=== PATIENT | female | born 1955 | race Caucasian/White ===

== ENCOUNTER 2023-09-19 13:52 | Outpatient (CLI) | payer MEDICARE, BC, SELFPAY | END 2023-09-19 13:53 | disposition home or self-care (01) | PROVIDERS: PCP Nurse Practitioner Family; Visit Provider Nurse Practitioner Family | DX: Z01.818 Encounter for other preprocedural examination (principal) | CPT/HCPCS: 80048; 85025 ==

== ENCOUNTER 2024-03-23 14:39 | Outpatient (CLI) | payer MEDICARE, BC, SELFPAY ==
--- OUTSIDE RECORDS SUMMARY | 2024-03-23 14:43 | XMS_ITS | Encounter Summary ---
Author Organization [facility] Address [address] [place] [address] Care Team Providers Care Garment Parts Cutter Machine Name Role Phone Logan Wolfe MD Primary Care Provider [phone] Reason for Visit * Reason Onset Date Comments Registry Management 01/01/2024 Encounter Details Date Type Department Care Team (Late st Contact Info) Description 01/01/2024 Telephone [place] [address] [place] [id number] Logan Wolfe MD [address] [facility] 20 [place] [address] Registry Management Social History Tobacco Use Types Packs/Day Years Used Date Smoking Tobacco: Former Cigarettes Q uit: 1987 Smokeless Tobacco: Never Alcohol Use Standard Drinks/Week Comments No 0 (1 standard drink = 0.6 oz pur e alcohol) Social Connection and Isolation Panel [NHANES] A nswer Date Recorded Frequency of Communication with Friends and Fami ly Not on file 08/15/2023 Frequency of Social Gatherings with Friends and Family Not on file 08/15/2023 Attends Judaism Services Not on file 08/14 Active Member of Clubs or Organizations Not on f ile 08/15/2023 Attends Club or Organization Meetings Not on ar e 08/15/2023 Are you , , di vorced, , never , or living with a partner? 08/15/2023 AUDIT-C Answer Date Recorded Q1: How often do you have a drink containing alc ohol? Never 11/25/2019 Average Number of Drinks Not on file Frequency of Binge Drinking Not on file 11/13 PHQ-2 Answer Date Recorded PHQ-9 Total Score 0 08/15/2023 Comments No Sex and Gender Information Value Date Recorded Sex Assigned at Not on file Legal Sex Female 8:05 PM CDT Gender Identity Not on file Sexual Orientation Not on file Occupation Industry Job Start Date Job End Date Retired Not on file Not on file Not on file documented as of this encounter Miscellaneous Notes * Telephone Encounter - Patricia Rizzo - 01/01/2024 3:39 PM CDT LMTCB to schedule BP check with nursing * Telephone Encounter - Cayla Figueredo, RN - 01/01/2024 9:32 AM CDT Registry Management Fiona is active on the following registry/registries: Hypertension Registry Measure Value Optimal Care BP reading -yearly BP Readings from Last 1 Encounters: 08/15/23 (!) 166/81 Yes BP controlled Age 18-59 <140/90 Age 60-85 <150/90 No Actions needed to achieve optimal care for hypertension: Schedule appointment for blood pressure check Actions taken: PSR to contact patient to schedule an appointment for: nurse visit/blood pressure check documented in this encounter Plan of Treatment Not on file documented as of this encounter Visit Diagnoses Not on filedocumented in this encounter Care Teams Garment Parts Cutter Machine Relationship Specialty Start Date End Date Logan Wolfe MD [address] [place] [address] PCP - General 01/31/23 documented as of this encounter
--- OUTSIDE RECORDS SUMMARY | 2024-03-23 14:43 | XMS_ITS | Clinical Summary ---
Author Organization [facility] Address [address] [place] [address] Care Team Providers Care Wildlife Ecologist Name Role Phone Elsewhere, Pcp Primary Care Provider Unavailabl e Source Comments Patient records contain information from all sites at [facility]. For routine questions regarding patient records, call [phone] during business hours, M-F 8:00 AM - 5:00 PM Central Time. Record requests for emergency care only can be directed to [phone] at any time.[facility] Allergies Active Allergy Reactions Criticality Noted Date Comments Bacitracin Other (see comments) 06/22/2020 Diclofenac Other (see comments),Nausea And Vomiting 06/22/2020 Ezetimibe Headache 03/14/2023 Lovastatin GI intolerance 04/14/2014 Acid reflux and stomach pain Mupirocin Other (see comments) 08/20/2012 Bactroban - facial swelling Nsaids (Non-Steroidal Anti-Inflammatory Drug) GI intolerance 04/03/2018 Oxaprozin Other (see comments),Nausea And Vomiting 06/22/2020 Penicillins Hives (Reselect Reaction),Rash Medium 10/09/2019 Hives, swelling right ear Sulfa (Sulfonamide Antibiotics) Rash 08/18/2012 Medications * This document contains information received from the source organization and may not represent a complete record from that organization. MULTIVITAMIN ORAL Take 1 tablet by mouth daily. 017 Active sodium chloride-sodiu m bicarbonate (NEILMED SINUS RINSE) nasal rinse 2 (two) times a day. NeilMed Sinus Rinse Packets nasal powder for reconstitution 017 Active cholecalcifero l, vitamin D3, 25 mcg (1,000 Unit) tablet Take 1,000 Units by mouth daily. Active artificial tears,hypromel lose, (ISOPTO TEARS) 0.3 % ophthalmic solution 1 drop as needed. Ac tive zinc citrate-phytas e 25-500 mg capsule Take 1 capsule by mouth daily. Active loratadine 10 mg capsule Take 1 capsule by mouth as needed. 022 Active simvastatin (ZOCOR) 20 mg tablet Take 1 tablet (20 mg total) by mouth every evening. 90 tablet 1 3 10:33 AM CLIENT DELIVERY SPECIALIST 023 Active triamcinolone acetonide (NASACORT ALLERGY NASAL) 024 Active HYDROcodone-ac etaminophen ([place]) 5-325 mg per tabletIndicati ons:Prolonged Acute Pain/Traumatic Injury Take 1-2 tablets by mouth every 6 (six) hours as needed for pain Indication: Prolonged Acute Pain/Traumatic Injury. 18 tablet 024 Active ketoconazole (Nizoral) 2 % cream Apply thin layer to affected nails and nail beds once daily ongoing. 60 g 6 024 Active azithromycin (ZITHROMAX) 500 mg tablet Take 500 mg by mouth daily. 018 2023 Discontinued doxycycline hyclate (Vibramycin) 100 mg capsule Take 1 capsule (100 mg total) by mouth 2 (two) times a day for 14 days. 28 capsule 4 11:54 AM CLIENT DELIVERY SPECIALIST 024 2023 azithromycin (Zithromax) 250 mg tablet Take 2 tablets (500 mg total) by mouth daily for 1 day, THEN 1 tablet (250 mg total) daily for 4 days. 6 tablet 4 4:17 PM CLIENT DELIVERY SPECIALIST 024 2023 azithromycin (Zithromax) 250 mg tablet Take 2 tablets (500 mg total) by mouth daily for 1 day, THEN 1 tablet (250 mg total) daily for 4 days. 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 Screening Mammogram Breast Cancer Discharge Disposition: Home or Self Care from Last 3 Months Immunizations Name Administration Dates Next Due Influenza, Unspecified 01/05/2011,02/03/2010 PPSV23 02/03/2010 RZV (SHINGRIX) 01/24/2018 Tdap 12/04/2016,02/21/2009 Zoster, Unspecified 01/24/2018 Family History Medical History Relation Name Comments Hernia Brother 1 Hyperlipidemia Brother 1 Hypertension Brother 1 Vision loss Brother 1 Vision loss due to eye stroke Diabetes Brother 2 omid Hyperlipidemia Brother 2 omid Hypertension Brother 2 omid Sleep apnea Brother 2 omid RA - Rheumatoid arthritis Cousin Kidney disease Father delmi Colon cancer Grandfather Cataracts Maternal Grandfather Orval Colon cancer Maternal Grandfather Orval Glaucoma Maternal Grandfather Orval Cataracts Maternal Grandmother Cataracts Mother yoni Coronary artery disease Mother yoni October 2018 Hyperlipidemia Mother yoni Hypertension Mother yoni Macular degeneration Mother yoni Sleep apnea Mother's Brother jonathan Amblyopia Neg Hx Blindness Neg Hx Retinal degeneration Neg Hx Retinal detachment Neg Hx Strabismus Neg Hx Stroke Neg Hx Thyroid disease Neg Hx Relation Name Status Comments Brother 1 Brother 2 omid Cousin Father delmi Grandfather Maternal Grandfather Orval Maternal Grandmother Mother yoni Mother's Brother jonathan Social History Tobacco Use Types Packs/Day Years Used Date Smoking Tobacco: Former Cigarettes Q uit: 04/15/1986 Smokeless Tobacco: Never Tobacco Cessation:Counseling Given: Not Answered Alcohol Use Standard Drinks/Week Comments No 0 (1 standard drink = 0.6 oz pur e alcohol) [facility] Utilities Answer Date Recorded In the past 12 months has e electric, gas, oil, or water company threatened to shut off services in your home? Patient declined 09/24/2023 Social Connection and Isolat ion Panel [NHANES] Answer Date Recorded In a typical week, how many times do you talk on the phone with family, friends, or neighbors? More than three times a week 08/01/2020 How often do you get togethe r with friends or relatives? Patient declined 08/01/2020 How often do you attend chur ch or gnosticism services? Patient declined 08/01/2020 Do you belong to any clubs o r organizations such as judaism groups, unions, fraternal or athletic groups, or school groups? Yes 08/01/2020 How often do you attend meet ings of the clubs or organizations you belong to? More than 4 times per year 08/01/2020 Are you , , di vorced, , never , or living with a partner? 08/01/2020 AUDIT-C Answer Date Recorded Q1: How often do you have a drink containing alc ohol? Never 08/01/2020 Average Number of Drinks Not on file 021 Frequency of Binge Drinking Not on file 07/14 Overall Financial Resource Strain (CARDIA) Answe r Date Recorded How hard is it for you to pa y for the very basics like food, housing, medical care, and heating? Patient declined 08/01/2020 [facility] - Occupational Stress Questionnaire Answer Date Recorded Do you feel stress - tense, restless, nervous, or anxious, or unable to sleep at night because your mind is troubled all the time - these days? Not at all 08/01/2020 Exercise Vital Sign Answer Date Recorde d On average, how many days pe r week do you engage in moderate to strenuous exercise (like a brisk walk)? Patient declined On average, how many minutes do you engage in exercise at this level? Patient declined 09/24/2023 Hunger Vital Sign Answer Date Recorded Within the past 12 months, y ou worried that your food would run out before you got the money to buy more. Patient declined Within the past 12 months, t he food you bought just didn't last and you didn't have money to get more. Patient declined 02/2024 PRAPARE - Transportation Answer Date Re corded In the past 12 months, has l ack of transportation kept you from medical appointments or from getting medications? Patient declined 09/24/2023 In the past 12 months, has l ack of transportation kept you from meetings, work, or from getting things needed for daily living? Patient declined 09/24/2023 Nutrition Answer Date Recorded Nutrition: EVOO Fat Source No 08/01 On average, how many serving s of fruits and vegetables do you eat per day (serving size is equal to 1 cup or approximately the size of a tennis ball)? 2-3 08/01/2020 Dental Answer Date Recorded Dental: Regular Dentist Yes 09/24/19 Employment Answer Date Recorded Employment status Retired 09/24/2023 Housing Stability Answer Date Recorded What is your living situation today? 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 on file Not on file Not on file Last Filed Vital Signs Vital Sign Reading Time Taken Comments Blood Pressure 175/77 10/08/2023 1:15 PM CDT Pulse 65 10/08/2023 1:15 PM CDT Temperature 36.5 C (97.7 F) 10/08/2023 12:45 PM CDT Respiratory Rate 13 10/08/2023 1:15 PM CDT Oxygen Saturation 93% 10/08/2023 1:1 5 PM CDT Inhaled Oxygen Concentration - - Weight 69.2 kg (152 lb 8 oz) 09/24/2023 3:22 PM CDT per outside preop exam Height 150.3 cm (4' 11.17) 09/24/2023 3:22 PM CDT per outside preop exam Body Mass Index 30.62 09/24/2023 3:22 PM CDT Plan of Treatment Upcoming Encounters Date Type Department Care Team (Latest Contact Info) Description 04/14/2024 8:10 AM CLIENT DELIVERY SPECIALIST Appointment Department of Laboratory Medicine in [address] [phone] Job Godinez M.D. [address] [place] [phone] 04/22/2024 11:15 AM CLIENT DELIVERY SPECIALIST Office Visit Department of Cardiovascular Diseases in [address] [phone] Job Godinez M.D. [address] [place] [phone] Discharge Disposition: Home or Self Care Health Maintenance Due Date Last Done Comments CT Colonography 1955 Cologuard 1955 FIT 1955 Zoster Vaccines (2 of 2) 03/21/2018 01/24/2018 Pneumococcal vaccine (65+ years) (2 of 2 - PCV) 10/29/2020 02/03/2010 Depression Screening (Annual PHQ-2) 04/15/2023 Office Visit for Blood Pressure Check / Re-check 05/23/2023 02/20/2023 COVID-19 Vaccine ( - season) 2023 07/28/2020, 07/07/2020 Influenza Vaccine (#1) 2024 01/05/2011, 2009 Fasting Glucose for Diabetes Screening 12/28/2024 12/28/2021, 08/21/2021, 08/07/2021, Additional history exists Mammogram 03/05/2025 03/05/2024, 12/2022, 02/21/2023, Additional history exists DTaP,Tdap,and Td Vaccines (3 - Td or Tdap) 12/04/2026 12/04/2016, 02/21/2009 Lipid (Cholesterol) Screening 05/07/2028 05/07/2023, 02/20/2023, 12/28/2021, Additional history exists Colonoscopy 06/18/2033 06/19/2023, 03/0 11/2016, 04/02/2007 Colorectal Cancer Screening 06/18/2033 Bone Density Scan (Osteoporosis Screen) Discontinued 05/28/2023 Fall Risk Screen (Annual) Completed 10/08/2023 IPV Vaccines Aged Out No longer eligi ble based on patient's age to complete this topic Medical Devices Implanted Type Area Shipping Packer Device Identifier Shelf Expiration Date Model / Serial / Lot Scrw Lcp St Fthrd Lck 2.7x20 - [id number] Implanted:Qty : 1 on 04/17/2022 by Jhon Lord M.D. at [facility] Hardware e.g. pins/screws/ rods Right: Elbow Depuy Synthes 02. 0 / / Kwire Fix Stn Ss Sngl 1.6x150 - [id number] Implanted:Qty : 1 on 04/17/2022 by Jhon Lord M.D. at [facility] Hardware e.g. pins/screws/ rods Right: Elbow Depuy Synthes 292.16 / / Drl Bit Lcp Ss Qc 6x1 - [id number] Implanted:Qty : 1 on 04/17/2022 by Jhon Lord M.D. at [facility] Hardware e.g. pins/screws/ rods Right: Elbow Depuy Synthes 323.062 / / Explanted Type Area Shipping Packer Device Identifier Shelf Expiration Date Model / Serial / Lot Depuy Synthes 3.5mm Cortex Screw Self Tapping Implanted:Qty : 1 on 04/17/2022 by Jhon Lord M.D. at [facility] Explanted:Qty : 1 on 10/08/2023 by Jhon Lord M.D. at [facility] Elbow Implant Right: Elbow Depuy Synthes 204.816 / 204.816 / 3.5mm Cortex Screws Self Tapping 18mm Implanted:Qty : 1 on 04/17/2022 by Jhon Lord M.D. at [facility] Explanted:Qty : 1 on 10/08/2023 by Jhon Lord M.D. at [facility] Elbow Implant Right: Elbow Depuy Synthes 204.818 / 204.818 / Plt Elb Lcp Rt 2h 2.7/3.5x90 - [id number] Implanted:Qty : 1 on 04/17/2022 by Jhon Lord M.D. at [facility] Explanted:Qty : 1 on 10/08/2023 by Jhon Lord M.D. at [facility] Hardware e.g. pins/screws/ rods Right: Elbow Depuy Synthes . 2 / / Scrw Lcp St Fthrd Lck 2.7x12 - [id number] Implanted:Qty : 1 on 04/17/2022 by Jhon Lrod M.D. at [facility] Explanted:Qty : 1 on 10/08/2023 by Jhon Lord M.D. at [facility] Hardware e.g. pins/screws/ rods Right: Elbow Depuy Synthes 2 / / Scrw Lcp St Fthrd Lck 2.7x14 - [id number] Implanted:Qty : 4 on 04/17/2022 by Jhon Lord M.D. at [facility] Explanted:Qty : 4 on 10/08/2023 by Jhon Lord M.D. at [facility] Hardware e.g. pins/screws/ rods Right: Elbow Depuy Synthes 4 / / Scrw Lcp St Fthrd Lck 2.7x18 - [id number] Implanted:Qty : 2 on 04/17/2022 by Jhon Lord M.D. at [facility] Explanted:Qty : 2 on 10/08/2023 by Jhon Lord M.D. at [facility] Hardware e.g. pins/screws/ rods Right: Elbow Depuy Synthes 8 / / Procedures Procedure Name Priority Date/Time Associated Diagnosis Comments BI BREAST SCREENING BILATERAL WITH TOMOSYNTHESIS RAD - Routine (most inpatients and all outpatients) 03/05/2024 8:09 AM CLIENT DELIVERY SPECIALIST Screening Mammogram Breast Cancer COLONOSCOPY Routine 06/19/2023 9:36 AM CLIENT DELIVERY SPECIALIST Screening Cancer Colon LIPID PANEL, S Routine 02/20/2023 8:25 AM CLIENT DELIVERY SPECIALIST Hypercholesterolemia Familial Counseling Cardiac Hypertension Essential Primary GLUCOSE, FASTING, S/P Routine 12/28/2021 8:59 AM CDT Hypercholesterolemia Familial Abnormal Result Of Other Cardiovascular Function Study from Last 3 Months or Most Recently Relevant to Health Maintenance Results * BI Breast Screening Bilateral with Tomosynthesis (03/05/2024 8:09 AM CLIENT DELIVERY SPECIALIST) Anatomical Region Laterality Modality Breast, Breast Imaging RST L OS, Breast Imaging ARZ LOS, Breast Imaging FLA LOS Bilateral Mammography Impressions 03/05/2024 1:00 PM CLIENT DELIVERY SPECIALIST Negative. RECOMMENDATION: Annual Screening Mammogram ASSESSMENT: BI-RADS: 1: Negative. Narrative 03/05/2024 1:00 PM CLIENT DELIVERY SPECIALIST EXAM: BI BREAST SCREENING BILATERAL WITH TOMOSYNTHESIS Current study was evaluated with a Computer Aided Detection (CAD) system. INDICATION: Screening mammogram. COMPARISON: Prior exam(s) were available and reviewed for comparison. DENSITY: c. The breast(s) are heterogeneously dense, which may obscure small masses. FINDINGS: No mammographic findings of malignancy. Procedure Note Jose Pittman M.D. - 03/05/2024 EXAM: BI BREAST SCREENING BILATERAL WITH TOMOSYNTHESIS Current study was evaluated with a Computer Aided Detection (CAD) system. INDICATION: Screening mammogram. COMPARISON: Prior exam(s) were available and reviewed for comparison. DENSITY: c. The breast(s) are heterogeneously dense, which may obscuresmall masses. FINDINGS: No mammographic findings of malignancy. IMPRESSION: Negative. RECOMMENDATION: Annual Screening Mammogram ASSESSMENT: BI-RADS: 1: Negative. Judie Bowman C.N.P. IMG BI PROCEDURES Sharon l Result * (ABNORMAL) Lipid Panel (02/20/2023 8:25 AM CLIENT DELIVERY SPECIALIST) Triglycerides 199(H) mg/dL 02/20/2023 8:54 AM [facility] Comment: ----REFERENCE VALUE---- Normal: <150 mg/dL Borderline High: 150-199 mg/dL High: 200-499 mg/dL Very High: > or =500 mg/dL Cholesterol, Total 206(H) mg/dL 2022 8:54 AM [facility] Comment: ----REFERENCE VALUE---- Desirable: < 200 mg/dL Borderline High: 200 - 239 mg/dL High: > or = 240 mg/dL Cholesterol, LDL, Calculated 128 mg/dL 02/20/2023 8:54 AM [facility] Comment: ----REFERENCE VALUE---- Desirable: <100 mg/dL Above Desirable: 100-129 mg/dL Borderline High: 130-159 mg/dL High: 160-189 mg/dL Very High: >=190 mg/dL ----ADDITIONAL INFORMATION---- LDL cholesterol calculated using the Shipman/NIH equation. Cholesterol, HDL 43(L) >=50 mg/dL 02/21/20 8:54 AM [facility] Cholesterol, Non-HDL, Calculated 163(H) mg/dL 02/20/2023 8:54 AM [facility] Comment: ----REFERENCE VALUE---- Desirable: <130 mg/dL Above Desirable: 130-159 mg/dL Borderline High: 160-189 mg/dL High: 190-219 mg/dL Very High: > or =220 mg/dL Fasting (8 HR or more) Yes 02/20/2023 8:27 AM [facility] Blood (Blood, Venous) 02/20/2023 8:25 AM CLIENT DELIVERY SPECIALIST 02/20/2023 8:27 AM CLIENT DELIVERY SPECIALIST us Job Godinez M.D. LAB BLOOD ADD-ON Final Res ult [facility] [address] [place] [id number], [facility] [place] [address] * Glucose, Fasting (12/28/2021 8:59 AM CDT) Glucose, P 99 70 - 100 mg/dL 12/28/2021 9:28 AM CDT CNFL Last Intake 15 hr 12/28/2021 9:02 AM CDT CNFL Blood (Blood, Venous) 12/28/2021 8:59 AM CDT 12/28/2021 9:02 AM CDT Job Godinez M.D. LAB BLOOD NON ADD-ON Final Result [facility] [address] [place] [id number], [facility] CNFL [facility] in [address] [address] from Last 3 Months or Most Recently Relevant to Health Maintenance Insurance [facility] MEDICARE Advance Directives For more information, please contact: [phone] * Full Code (Latest Code Status on File) Date Activated Date Inactivated Comments 06/19/2023 9:42 AM 06/20/2023 5:39 AM Question Answer Comments Full Code: Discussed * Full Code Date Activated Date Inactivated Comments 06/19/2023 8:18 AM 06/19/2023 9:42 AM Question Answer Comments Full Code: Discussed Care Teams Wildlife Ecologist Relationship Specialty Start Date End Date Elsewhere, Pcp PCP - General Internal Medicine 12/29/21
--- OUTSIDE RECORDS SUMMARY | 2024-03-23 14:43 | XMS_ITS | Encounter Summary ---
Author Organization [facility] Address [address] [place] [address] Care Team Providers Care Aircraft Maintenance Director Name Role Phone Elsewhere, Pcp Primary Care Provider Unavailabl e Reason for Visit * Reason Comments Post-op * Outpatient (Routine) - Closed Specialty Diagnoses / Procedures Referred By Haris t Referred To Contact Orthopedic Surgery Jhon Lord M.D. [address] [place] [address] Phone: tel: fax: [facility] Region Referral ID Status Reason Start Date Expiration Date Visits Re quested Visits Authorized [id number] Closed 12/19/2023 06/19/2025 1 1 Encounter Details Date Type Department Care Team (Late st Contact Info) Description 12/20/2023 11:15 AM CDT Nurse Only Department of Orthopedic Surgery in [address] [phone] Jhon Lord M.D. [address] [place] [address] Luz Maria Dickson, RTseringNTsering [address] [place] [phone] Right Elbow - Post-op Discharge Disposition: Home or Self Care Social History Tobacco Use Types Packs/Day Years Used Date Smoking Tobacco: Former Cigarettes Q uit: 04/15/1986 Smokeless Tobacco: Never Alcohol Use Standard Drinks/Week Comments No 0 (1 standard drink = 0.6 oz pur e alcohol) [facility] Utilities Answer Date Recorded In the [...] often do you attend chur ch or worship services? Patient declined 08/01/2020 Do you belong to any clubs o r organizations such as restoration groups, unions, fraternal or athletic groups, or [...] medical care, and heating? 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 - 12/20/2023 11:15 AM CDT Fiona was seen recently for retained suture in proximal end of incision of right elbow. She continues to have the sensation that something is still in her elbow, like a sliver sensation. Her incisionis well healed, no redness. She states yesterday that there was some drainage for the same spot thesuture was cut of at the last visit. The area that she feel the irritation is about 1-2 cm from thearea that was draining. Pressure was applied to the area and only a spot of drainage was seen. Dr. Lord was asked to look at it to make sure there was no other issues. He was not concerned and discuss the issues she is having with her. documented in this encounter Plan of Treatment Upcoming Encounters Date Type Department Care Team (Latest Contact Info) Description 04/14/2024 8:10 AM AIRLINE RESERVATIONIST Appointment Department of Laboratory Medicine in [address] [phone] Job Godinez M.D. [address] [place] [phone] 04/22/2024 11:15 AM AIRLINE RESERVATIONIST Office Visit Department of Cardiovascular Diseases in [address] [phone] Job Godinez M.D. [address] [place] [phone] Discharge Disposition: Home or Self Care documented as of this encounter Visit Diagnoses Not on filedocumented in this encounter Care Teams Aircraft Maintenance Director Relationship Specialty Start Date End Date Elsewhere, Pcp PCP - General Internal Medicine 12/29/21 documented as of this encounter
--- OUTSIDE RECORDS SUMMARY | 2024-03-23 14:43 | XMS_ITS ---
Author Organization [facility] Address [address] [place] [address] Care Team Providers Care Bindery Production Manager Name Role Phone Unavailable Unavailable Unavailable Surgery Details Not on file Complications Check Surgery Details section. Procedure Estimated Blood Loss Check Surgery Details section. Procedure Findings Check Surgery Details section. Procedure Specimens Taken Check Surgery Details section.
--- OUTSIDE RECORDS SUMMARY | 2024-03-23 14:43 | XMS_ITS | Clinical Summary ---
Author Organization [facility] Address [address] [place] [address] Care Team Providers Care Wood Carver Hand Name Role Phone Logan Wolfe MD Primary Care Provider Allergies Active Allergy Reactions Criticality Noted Date Comments Bacitracin Diclofenac Nausea And Vomiting 06/22/2020 Ezetimibe Headache 03/14/2023 Lovastatin Nausea And Vomiting 04/14/2014 Acid reflux and stomach pain Mupirocin Other (see comments) 08/20/2012 Bactroban - facial swelling Nsaids Nausea And Vomiting 09/30/2019 Oxaprozin Nausea And Vomiting 06/22/2020 Penicillins Hives Medium 10/09/2019 Hives, swelling right ear Sulfa Antibiotics Medications Multiple Vitamins-Minerals (DAILY MULTIVITAMIN) capsule Take 1 tablet by mouth 1 (one) time each day Active acetaminophen (TYLENOL) 500 MG tablet Take 2 tablets (1,000 mg total) by mouth every 6 (six) hours if needed for mild pain Active cholecalciferol (VITAMIN D-3) 25 MCG (1000 UT) tablet Take 1 tablet (1,000 Units total) by mouth 1 (one) time each day Active Zinc 50 MG capsule Take by mouth 1 (one) time each day Active Loratadine 10 MG capsule Take 1 capsule by mouth once daily as needed 2 Active ciclopirox (PENLAC) 8 % solution Apply topically daily 3 Active Newport 3 1200 MG capsule Take 1,200 mg by mouth 1 (one) time each day 4 Active simvastatin (Zocor) 20 MG tabletIndications: Mixed hyperlipidemia Take 1 tablet (20 mg total) by mouth every night 90 tablet 3 4 05/13/19 25 Active Active Problems Problem Noted Date Diagnosed Date Chronic interstitial cystitis 08/15/2023 Stress incontinence in female 08/15/2023 Encounter for screening for malignant neoplasm o f colon 05/16/2023 Medicare annual wellness visit, subsequent 05/16 Assessment & Plan (05/16/2023 6:10 PM COST ANALYST): Blood work completed and results reviewed with patient Fiona has Dexa and Colonoscopy's completed through [facility] in [place] Declines Covid, Influenza, Pneumonia and Shingles vaccines today. Advised her to go to pharmacy if she would like these since vaccines are covered under prescription drug coverage with Medicare. Closed fracture of olecranon process of ulna 05/2022 Overview (06/20/2023): Added automatically from request for surgery [id number] Familial hypercholesterolemia 02/28/2022 Primary hypertension 02/28/2022 Elevated lipoprotein(a) 09/18/2021 Seasonal allergies 11/25/2019 History of sinusitis 11/25/2019 Mixed hyperlipidemia 11/25/2019 Assessment & Plan (05/16/2023 6:12 PM COST ANALYST): Lipid abnormalities are improving with treatment. Nutritional counseling was provided. and Pharmacotherapy as ordered. Lipids will be reassessed in 1 year. Continue on Simvastatin 20 mg daily and Newport 3 daily for cholesterol management History of endometriosis 11/25/2019 Neck pain 05/21/2019 Cough 05/21/2019 Inflammatory polyarthropathy 12/15/2008 Overview (05/21/2019): Overview: Arthritis Inflammatory Encounters Date Type Department Care Team Description 01/02/2024 10:20 AM CDT Clinical Support [place] [address] [address] 01/01/2024 Telephone [place] [address] [facility] [address] [place] [address] Logan Wolfe MD Registry Management from Last 3 Months Immunizations Name Administration Dates Next Due COVID-19, mRNA, LNP-S, PF, 30mcg/0.3mL dose Pfiz er 07/28/2020,07/07/2020 Influenza, Unspecified 01/05/2011,02/03/2010 Pneumococcal Polysaccharide 02/03/2010 Tdap 12/04/2016,02/21/2009 Zoster Recombinant 01/24/2018 Family History Medical History Relation Comments Diabetes Brother Vision loss Brother Heart attack Father Heart disease Father Kidney disease Father Vision loss Father Heart disease Maternal Grandmother Asthma Mother Heart attack Mother Heart disease Mother Vision loss Mother Relation Status Comments Brother Alive Father Maternal Grandmother Mother Alive Social History Tobacco Use Types Packs/Day Years Used Date Smoking Tobacco: Former Cigarettes Q uit: 1986 Smokeless Tobacco: Never Tobacco Cessation:Counseling Given: Not Answered Alcohol Use Standard Drinks/Week Comments No 0 (1 standard drink = 0.6 oz pur e alcohol) Social Connection and Isolation Panel [NHANES] A nswer Date Recorded Frequency of Communication with Friends and Fami ly Not on file 08/15/2023 Frequency of Social Gatherings with Friends and Family Not on file 08/15/2023 Attends Restorationist Services Not on file 08/14 Active Member [...] Sign Reading Time Taken Comments Blood Pressure 138/80 01/02/2024 10:31 AM CDT Pulse 66 01/02/2024 10:31 AM CDT Temperature 36.3 C (97.4 F) 08/15/2023 10:36 AM CDT Respiratory Rate 16 08/15/2023 10:36 AM CDT Oxygen Saturation 97% 08/15/2023 10:36 AM CDT Inhaled Oxygen Concentration - - Weight 70.3 kg (155 lb) 08/15/2023 10:36 AM CDT Height 151 cm (4' 11.45) 08/15/2023 10:36 AM CD T Body Mass Index 30.84 08/15/2023 10:36 AM CDT Plan of Treatment Health Maintenance Due Date Last Done Comments CT Colonography 1955 FIT-DNA 1955 Sigmoidoscopy 1955 iFOBT 1955 Zoster Vaccines (2 of 2) 03/21/2018 01/24/2018 Pneumococcal Vaccine: 65+ Years (2 of 2 - PCV) 10/29/2020 02/03/2010 COVID-19 Vaccine (3 - season) 2023 07/28/2020, 07/07/2020 Influenza Vaccine (#1) 2023 01/05/2011, 2009 Medicare Annual Wellness Visit (AWV) 05/14/2024 05/14/2023 Fall Risk Performed 06/25/2024 06/26/2023 Mammogram 03/05/2025 03/05/2024, 1112/2022, 02/21/2023, Additional history exists DTaP,Tdap,and Td Vaccines (3 - Td or Tdap) 12/04/2026 12/04/2016, 02/21/2009 Bone Density Scan 05/28/2028 05/28/2023, , 03/19/2011 Colonoscopy 06/18/2033 06/19/2023, 04/02/2007 Colorectal Cancer Screening 06/18/2033 HPV Vaccines Aged Out No longer eligi ble based on patient's age to complete this topic Insurance [place] MEDICARE Care Teams Wood Carver Hand Relationship Specialty Start Date End Date Logan Wolfe MD [address] [place] [phone] PCP - General 01/31/23
--- OUTSIDE RECORDS SUMMARY | 2024-03-23 14:43 | XMS_ITS | Encounter Summary ---
Author Organization [facility] Address [address] [place] [address] Care Team Providers Care Sandwich Wrapper Name Role Phone Logan Wolfe MD Primary Care Provider [phone] Reason for Visit * Reason Comments Blood Pressure Check Encounter Details Date Type Department Care Team (Late st Contact Info) Description 01/02/2024 10:20 AM CDT Clinical Support [place] [address] [place] [address] Social History Tobacco Use Types Packs/Day Years [...] and Family Not on file 08/15/2023 Attends Religion Services Not on file 08/14 Active Member [...] Average Number of Drinks Not on file 020 Frequency of Binge Drinking Not on file [...] on file documented as of this encounter Last Filed Vital Signs Vital Sign Reading Time Taken Comments Blood Pressure 138/80 01/02/2024 10:31 AM CDT Pulse 66 01/02/2024 10:31 AM CDT Temperature - - Respiratory Rate - - Oxygen Saturation - - Inhaled Oxygen Concentration - - Weight - - Height - - Body Mass Index - - documented in this encounter Progress Notes * Eugenie Flores LPN - 01/02/2024 10:20 AM CDT Nurse Note Routine BP Check Patient presents today for BP check per request of: PCP BP: 01/02/2024 138/80 BP Readings from Last 4 Encounters: 01/02/24 145/77 08/15/23 (!) 166/81 06/26/23 142/78 05/14/23 128/66 Medication Review: Patients medication list reviewed. Patient is compliant with medications Home BP Readings: Patient does not monitor their blood pressure at home or does not have any home readings available Visit Vitals BP 145/77 (BP Location: Left arm, Patient Position: Sitting, BP Cuff Size: Adult long) Pulse 66 Blood pressure checked automated using adult long Plan: Patient's blood pressure is within goal at today's visit. Patient Education: Patient had previous education reinforced and reviewed. Patient provided with additional [facility]-approved materials including: - Hypertension Long-Term Medications Medication Sig Dispense Refill Loratadine 10 MG capsule Take 1 capsule by mouth once daily as needed simvastatin (Zocor) 20 MG tablet Take 1 tablet (20 mg total) by mouth every night 90 tablet 3 documented in this encounter Plan of Treatment Not on file documented as of this encounter Visit Diagnoses Not on filedocumented in this encounter Care Teams Sandwich Wrapper Relationship Specialty Start Date End Date Logan Wolfe MD [address] [place] [phone] PCP - General 01/31/23 documented as of this encounter
--- OUTSIDE RECORDS SUMMARY | 2024-03-23 14:43 | XMS_ITS | Encounter Summary ---
Author Organization [facility] Address [address] [place] [address] Care Team Providers Care Rough Rounder Name Role Phone Elsewhere, Pcp Primary Care Provider Unavailabl e Reason for Referral * Outpatient (Routine) - Closed Specialty Diagnoses / Procedures Referred By Haris t Referred To Contact Orthopedic Surgery Jhon Lord M.D. [address] [place] [address] Phone: tel: fax: [facility] Region Referral ID Status Reason Start Date Expiration Date Visits Re quested Visits Authorized [id number] Closed 12/19/2023 06/19/2025 1 1 Scheduling Instructions Possible retained suture Encounter Details Date Type Department Care Team (Late st Contact Info) Description 12/19/2023 Clinical Communication Department of Orthopedic Surgery in [place], [place] [address] [place] [address] Jhon Lord M.D. [address] [place] [phone] Social History Tobacco Use Types Packs/Day Years Used Date Smoking Tobacco: Former Cigarettes Q uit: 04/15/1986 Smokeless Tobacco: Never Alcohol Use Standard Drinks/Week Comments No 0 (1 standard drink = 0.6 oz pur e alcohol) [facility] Utilities Answer Date Recorded In the past 12 months has th e electric, gas, oil, or water company [...] often do you attend chur ch or mu-ism services? Patient declined 08/01/2020 Do you belong to any clubs o r organizations such as rastafari groups, unions, fraternal or athletic groups, or [...] medical care, and heating? 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 - 12/19/2023 2:03 PM CDT Patient calls today stating that she thinks there is still another suture in her elbow. PO hardwareremoval right elbow 10/07 Retained suture removal 11/25 She notes that she still has a tender lump that drained some pus this morning. She thought maybe she saw what would be another suture but is not for certain. She denies fever. She is wondering if she could be seen tomorrow morning in [place]. She has to bring her for an appt so will be there already. ORTHO please advise should she make another nurse appt or can she be fit in with Dr. Lord team? documented in this encounter Plan of Treatment Upcoming Encounters Date Type Department Care Team (Latest Contact Info) Description 04/14/2024 8:10 AM DRY JANITOR Appointment Department of Laboratory Medicine in [address] [phone] Job Godinez M.D. [address] [place] [phone] 04/22/2024 11:15 AM DRY JANITOR Office Visit Department of Cardiovascular Diseases in [address] [phone] Job Godinez M.D. [address] [place] [phone] Discharge Disposition: Home or Self Care Scheduled Referrals Name Type Priority Associated Diagnoses Order Schedule Orthopedic Surgery nurse visit (clinic) Outpatient Referral Routine Expecte d: 12/20/2023, Expires: 03/19/2025 documented as of this encounter Visit Diagnoses Not on filedocumented in this encounter Care Teams Rough Rounder Relationship Specialty Start Date End Date Elsewhere, Pcp PCP - General Internal Medicine 12/29/21 documented as of this encounter
--- OUTSIDE RECORDS SUMMARY | 2024-03-23 14:43 | XMS_ITS | Encounter Summary ---
Author Organization [facility] Address [address] [place] [address] Care Team Providers Care Electromechanical Technician Name Role Phone Elsewhere, Pcp Primary Care Provider Unavailabl e Reason for Referral * Outpatient (Routine) - Closed Specialty Diagnoses / Procedures Referred By Haris t Referred To Contact Diagnoses Screening Mammogram Breast Cancer Procedures BI Breast Screening Bilateral with Tomosynthesis Judie Bowman, C.N.P. [address] [place] [address] Phone: tel: fax: [facility] Region Referral ID Status Reason Start Date Expiration Date Visits Re quested Visits Authorized [id number] Closed 03/03/2024 03/03/2025 1 1 PROPELLED HOT MIX ROLLER OPERATOR Reason for Visit * Outpatient (Routine) - Closed Specialty Diagnoses / Procedures Referred By Contac t Referred To Contact Diagnoses Screening Mammogram Breast Cancer Procedures BI Breast Screening Bilateral with Tomosynthesis Judie Bowman, C.N.P. [address] [place] [address] Phone: tel: fax: [facility] Region Referral ID Status Reason Start Date Expiration Date Visits Re quested Visits Authorized [id number] Closed 03/03/2024 03/03/2025 1 1 Encounter Details Date Type Department Care Team (Late st Contact Info) Description 03/05/2024 7:59 AM SELF PROPELLED HOT MIX ROLLER OPERATOR - 03/05/2024 11:59 PM SELF PROPELLED HOT MIX ROLLER OPERATOR Hospital Encounter Department of Radiology in [address] [phone] Judie Bowman C.NTseringP. [address] [place] [address] Screening Mammogram Breast Cancer Discharge Disposition: Home or Self Care Social History Tobacco Use Types Packs/Day Years Used Date Smoking Tobacco: Former Cigarettes Q uit: 04/15/1986 Smokeless Tobacco: Never Alcohol Use Standard Drinks/Week Comments No 0 (1 standard drink = 0.6 oz pur e alcohol) [facility] Utilities Answer Date Recorded In the past [...] often do you attend chur ch or confucianism services? Patient declined 08/01/2020 Do you belong to any clubs o r organizations such as pentecostalism groups, unions, fraternal or athletic groups, or [...] medical care, and heating? 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 cholecalciferol, vitamin D3, 25 mcg (1,000 Unit) tablet Take 1,000 Units by mouth daily. HYDROcodone-acet aminophen ([place]) 5-325 mg per tabletIndication s:Prolonged Acute Pain/Traumatic Injury Take 1-2 tablets by mouth every 6 (six) hours as needed for pain Indication: Prolonged Acute Pain/Traumatic Injury. 18 tablet 10/08/2023 ketoconazole (Nizoral) 2 % cream Apply thin layer to affected nails and nail beds once daily ongoing. 60 g 6 11/22/2023 loratadine 10 mg capsule Take 1 capsule by mouth as needed. 12/26/2021 MULTIVITAMIN ORAL Take 1 tablet by mouth daily. 07/31/2016 simvastatin (ZOCOR) 20 mg tablet Take 1 tablet (20 mg total) by mouth every evening. 90 tablet 1 02/21/2023 10:33 AM SELF PROPELLED HOT MIX ROLLER OPERATOR 10/28/2022 sodium chloride-sodium bicarbonate (NEILMED SINUS RINSE) nasal rinse 2 (two) times a day. NeilMed Sinus Rinse Packets nasal powder for reconstitution 07/31/2016 triamcinolone acetonide (NASACORT ALLERGY NASAL) 08/14/2023 zinc citrate-phytase 25-500 mg capsule Take 1 capsule by mouth daily. doxycycline hyclate (Vibramycin) 100 mg capsule Take 1 capsule (100 mg total) by mouth 2 (two) times a day for 14 days. 28 capsule 03/03/2024 11:54 AM SELF PROPELLED HOT MIX ROLLER OPERATOR 03/03/2024 03/17/20 azithromycin (ZITHROMAX) 500 mg tablet Take 500 mg by mouth daily. 04/02/2018 03/09/20 24 documented as of this encounter Plan of Treatment Upcoming Encounters Date Type Department Care Team (Latest Contact Info) Description 04/14/2024 8:10 AM SELF PROPELLED HOT MIX ROLLER OPERATOR Appointment Department of Laboratory Medicine in [address] [phone] [place] [address] 04/22/2024 11:15 AM SELF PROPELLED HOT MIX ROLLER OPERATOR Office Visit Department of Cardiovascular Diseases in [address] [phone] Job Godinez M.D. [address] [place] [address] Discharge Disposition: Home or Self Care documented as of this encounter Procedures Procedure Name Priority Date/Time Associated Diagnosis Comments BI BREAST SCREENING BILATERAL WITH TOMOSYNTHESIS RAD - Routine (most inpatients and all outpatients) 03/05/2024 8:09 AM SELF PROPELLED HOT MIX ROLLER OPERATOR Screening Mammogram Breast Cancer documented in this encounter Results * BI Breast Screening Bilateral with Tomosynthesis (03/05/2024 8:09 AM SELF PROPELLED HOT MIX ROLLER OPERATOR) Anatomical Region Laterality Modality Breast, Breast Imaging RST L OS, Breast Imaging ARZ LOS, Breast Imaging FLA LOS Bilateral Mammography Impressions 03/05/2024 1:00 PM SELF PROPELLED HOT MIX ROLLER OPERATOR Negative. RECOMMENDATION: Annual Screening Mammogram ASSESSMENT: BI-RADS: 1: Negative. Narrative 03/05/2024 1:00 PM SELF PROPELLED HOT MIX ROLLER OPERATOR EXAM: BI BREAST SCREENING BILATERAL WITH TOMOSYNTHESIS [...] Screening Mammogram ASSESSMENT: BI-RADS: 1: Negative. Judie HINTON BI PROCEDURES Sharon l Result documented in this encounter Visit Diagnoses Diagnosis Screening Mammogram Breast Cancer documented in this encounter Care Teams Electromechanical Technician Relationship Specialty Start Date End Date Elsewhere, Pcp PCP - General Internal Medicine 12/29/21 documented as of this encounter
--- OUTSIDE RECORDS SUMMARY | 2024-03-23 14:43 | XMS_ITS | Referral Summary ---
Author Organization [facility] Address [address] [place] [id number] Care Team Providers Care Vice President Integrated Name Role Phone Elsewhere, Pcp Primary Care Provider Unavailabl e Source Comments Patient records contain information from all sites at [facility]. For routine questions regarding patient records, call [phone] during business hours, M-F 8:00 AM - 5:00 PM Central Time. Record requests for emergency care only can be directed to [phone] at any time.[facility] Encounters Date Type Department Care Team Description 03/05/2024 7:59 AM KAIAKO KURA KAUPAPA MAORI - 03/05/2024 11:59 PM KAIAKO KURA KAUPAPA [facility]ORI Hospital Encounter Department of Radiology in [address] [phone] Judie Bowman C.N.P. Screening Mammogram Breast Cancer Discharge Disposition: Home or Self Care from Last 3 Months Allergies Active Allergy Reactions Criticality Noted Date [...] ORAL Take 1 tablet by mouth daily. Active sodium chloride-sodiu m bicarbonate (NEILMED SINUS RINSE) nasal rinse 2 (two) times a day. NeilMed Sinus Rinse Packets nasal powder for reconstitution Active cholecalcifero l, vitamin D3, 25 mcg [...] evening. 90 tablet 1 3 10:33 AM KAIAKO KURA KAUPAPA MAORI 023 Active triamcinolone acetonide (NASACORT ALLERGY NASAL) 024 Active HYDROcodone-ac etaminophen ([place]) 5-325 mg per tabletIndicati ons:Prolonged Acute Pain/Traumatic Injury Take 1-2 tablets by mouth every 6 (six) hours as needed for pain Indication: Prolonged Acute Pain/Traumatic Injury. 18 tablet Active ketoconazole (Nizoral) 2 % cream Apply [...] 14 days. 28 capsule 4 11:54 AM KAIAKO KURA KAUPAPA MAORI 024 2023 azithromycin (Zithromax) 250 mg tablet Take 2 tablets (500 mg total) by mouth daily for 1 day, THEN 1 tablet (250 mg total) daily for 4 days. 6 tablet 4 4:17 PM KAIAKO KURA KAUPAPA MAORI 024 2023 azithromycin (Zithromax) 250 mg tablet Take 2 tablets (500 mg total) by mouth daily for 1 day, THEN 1 tablet (250 mg total) daily for 4 days. 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 Overview (09/04/2016): Arthritis Inflammatory Pain Neck Bursitis Achilles Right Pain Heel Right Tendinosis Insertional Achilles Right Immunizations Name Administration Dates Next Due Influenza, Unspecified 01/05/2011,02/03/2010 PPSV23 02/03/2010 RZV (SHINGRIX) 01/24/2018 Tdap 12/04/2016,02/21/2009 Zoster, Unspecified 01/24/2018 Social History Tobacco Use Types Packs/Day Years Used Date Smoking Tobacco: Former Cigarettes Q uit: 04/15/1986 Smokeless Tobacco: Never Tobacco Cessation:Counseling Given: Not Answered Alcohol Use Standard Drinks/Week Comments No 0 (1 standard drink = 0.6 oz pur e alcohol) [facility] Utilities Answer Date Recorded In the past 12 months has e [employer], gas, oil, or water [employer] threatened to shut off services in your [...] 08/01/2020 How often do you attend chur or rastafari services? Patient declined 08/01/2020 Do you belong to any clubs o r organizations such as temple groups, unions, fraternal or athletic groups, or [...] medical care, and heating? 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 [address] [place] [phone] 04/22/2024 11:15 AM KAIAKO KURA [facility]OR[facility] Office Visit Department of Cardiovascular Diseases in [address] [phone] Job Godinez M.D. [address] [place] [phone] Discharge Disposition: Home or Self Care Medical Devices Implanted Type Area Senior Web Services Developer Device Identifier Shelf Expiration Date Model / Serial / Lot Scrw Lcp St Fthrd Lck 2.7x20 - [id number] Implanted:Qty : 1 on 04/17/2022 by Jhon Lord M.D. at [facility] Hardware e.g. pins/screws/ rods Right: Elbow Depuy Synthes 02.211.02 0 / / Kwire Fix Stn Ss Sngl 1.6x150 - [id number] Implanted:Qty : 1 on 04/17/2022 by Jhon Lord M.D. at [facility] Hardware e.g. pins/screws/ rods Right: Elbow Depuy Synthes 292.16 / / Drl Bit Lcp Ss Qc 6x1 - [id number] Implanted:Qty : 1 on 04/17/2022 by Jhon Lord M.D. at [facility] Hardware e.g. pins/screws/ rods Right: Elbow Depuy Synthes 323.062 / / Explanted Type Area Senior Web Services Developer Device Identifier Shelf Expiration Date Model / Serial / Lot Depuy Synthes 3.5mm Cortex Screw Self Tapping Implanted:Qty : 1 on 04/17/2022 by Jhon Lord M.D. at [facility] Explanted:Qty : 1 on 10/08/2023 by Jhon Lord M.D. at [facility] Elbow Implant Right: Elbow Depuy Synthes 204.816 / 204.816 / 3.5mm Cortex Screws Self Tapping 18mm Implanted:Qty : 1 on 04/17/2022 by Jhon Lord M.D. at [facility] Explanted:Qty : 1 on 10/08/2023 by Jhon Lord M.D. at [facility] Elbow Implant Right: Elbow Depuy Synthes 204.818 / 204.818 / Plt Elb Lcp Rt 2h 2.7/3.5x90 - [id number] Implanted:Qty : 1 on 04/17/2022 by Jhon Lord M.D. at [facility] Explanted:Qty : 1 on 10/08/2023 by Jhon Lord M.D. at [facility] Hardware e.g. pins/screws/ rods Right: Elbow Depuy Synthes 2 / / Scrw Lcp St Fthrd Lck 2.7x12 - [id number] Implanted:Qty : 1 on 04/17/2022 by Jhon Lord M.D. at [facility] Explanted:Qty : 1 on 10/08/2023 by Jhon Lord M.D. at [facility] Hardware e.g. pins/screws/ rods Right: Elbow Depuy Synthes 2 / / Scrw Lcp St Fthrd Lck 2.7x14 - [id number] Implanted:Qty : 4 on 04/17/2022 by Jhon Lord M.D. at [facility] Explanted:Qty : 4 on 10/08/2023 by Jhon Lord M.D. at [facility] Hardware e.g. pins/screws/ rods Right: Elbow Depuy Synthes 4 / / Scrw Lcp St Fthrd Lck 2.7x18 - [id number] Implanted:Qty : 2 on 04/17/2022 by Jhon Lord M.D. at [facility] Explanted:Qty : 2 on 10/08/2023 by Jhon Lord M.D. at [facility] Hardware e.g. pins/screws/ rods Right: Elbow Depuy Synthes 8 / / Procedures Procedure Name Priority Date/Time Associated Diagnosis Comments BI BREAST SCREENING BILATERAL WITH TOMOSYNTHESIS RAD - Routine (most inpatients and all outpatients) 03/05/2024 8:09 AM KAIAKO KURA KAUPAPA MAORI Screening Mammogram Breast Cancer COLONOSCOPY Routine 06/19/2023 9:36 AM KAIAKO KURA [facility]UP[facility] MAORI Screening Cancer Colon LIPID PANEL, S Routine 02/20/2023 8:25 AM KAIAKO KURA [facility]UP[facility]A MAORI Hypercholesterolemia Familial Counseling Cardiac Hypertension Essential Primary GLUCOSE, FASTING, S/P Routine 12/28/2021 8:59 AM CDT Hypercholesterolemia Familial Abnormal Result Of Other Cardiovascular Function Study from Last 3 Months or Most Recently Relevant to Health Maintenance Results * BI Breast Screening Bilateral with Tomosynthesis (03/05/2024 8:09 AM KAIAKO KURA KAUPAPA MAORI) Anatomical Region Laterality Modality Breast, Breast Imaging RST L OS, Breast Imaging ARZ LOS, Breast Imaging FLA LOS Bilateral Mammography Impressions 03/05/2024 1:00 PM KAIAKO KURA KAUPAPA MAORI Negative. RECOMMENDATION: Annual Screening Mammogram ASSESSMENT: BI-RADS: 1: Negative. Narrative 03/05/2024 1:00 PM KAIAKO KURA KAUPAPA MAORI EXAM: BI BREAST SCREENING BILATERAL WITH TOMOSYNTHESIS [...] Judie HINTON BI PROCEDURES Sharon l Result * (ABNORMAL) Lipid Panel (02/20/2023 8:25 AM KAIAKO KURA KAUPAPA MAORI) Triglycerides 199(H) mg/dL 02/20/2023 8:54 AM KAIAKO KURA KAUPAPA MAORI CNFL Comment: ----REFERENCE VALUE---- Normal: <150 mg/dL Borderline High: 150-199 mg/dL High: 200-499 mg/dL Very High: > or =500 mg/dL Cholesterol, Total 206(H) mg/dL 2022 8:54 AM KAIAKO KURA [facility]AUPAPA MAORI CNFL Comment: ----REFERENCE VALUE---- Desirable: < 200 mg/dL Borderline High: 200 - 239 mg/dL High: > or = 240 mg/dL Cholesterol, LDL, Calculated 128 mg/dL 02/20/2023 8:54 AM KAIAKO KURA KAUPAPA MAORI CNFL Comment: ----REFERENCE VALUE---- Desirable: <100 mg/dL Above Desirable: 100-129 mg/dL Borderline High: 130-159 mg/dL High: 160-189 mg/dL Very High: >=190 mg/dL ----ADDITIONAL INFORMATION---- LDL cholesterol calculated using the Shipman/NIH equation. Cholesterol, HDL 43(L) >=50 mg/dL 02/21/20 8:54 AM KAIAKO KURA [facility]UP[facility] MAORI CNFL Cholesterol, Non-HDL, Calculated 163(H) mg/dL 02/20/2023 8:54 AM KAIAKO KURA KAUP[facility]A MAORI CNFL Comment: ----REFERENCE VALUE---- Desirable: <130 mg/dL Above Desirable: 130-159 mg/dL Borderline High: 160-189 mg/dL High: 190-219 mg/dL Very High: > or =220 mg/dL Fasting (8 HR or more) Yes 02/20/2023 8:27 AM KAIAKO KURA [facility]UP[facility] MAORI CNFL Blood (Blood, Venous) 02/20/2023 8:25 AM KAIAKO KURA KAUP[facility]A MAORI 02/20/2023 8:27 AM KAIAKO KURA KAUP[facility]A MAORI us Job Godinez M.D. LAB BLOOD ADD-ON Final Res ult [facility] [address] [place] [address], [facility] CNFL [facility] in [address] [address] * Glucose, Fasting (12/28/2021 8:59 AM CDT) Glucose, P 99 70 - 100 mg/dL 12/28/2021 9:28 AM CDT CNFL Last Intake 15 hr 12/28/2021 9:02 AM CDT CNFL Blood (Blood, Venous) 12/28/2021 8:59 AM CDT 12/28/2021 9:02 AM CDT us Job Godinez M.D. LAB BLOOD NON ADD-ON Final Result [facility] [address] [facility] [address] [facility] [place] [address], [place] CNFL [facility] in [place] [id number] [place] [address] [address] [place] [address] from Last 3 Months or Most Recently Relevant to Health [place] [address] [facility] MEDICARE Advance Directives For more information, please contact: [phone] * Full Code (Latest Code Status on File) Date Activated Date Inactivated Comments 06/19/2023 9:42 AM 06/20/2023 5:39 AM Question Answer Comments Full Code: Discussed * Full Code Date Activated Date Inactivated Comments 06/19/2023 8:18 AM 06/19/2023 9:42 AM Question Answer Comments Full Code: Discussed Care Teams Vice President Integrated Relationship Specialty Start Date End Date Elsewhere, Pcp PCP - General Internal Medicine 12/29/21
--- NOTE | 2024-03-23 15:00 | CRLHL7_ITS ---
For Patients: As a result of the Century Cures Act, medical imaging exams and procedure reports are released immediately into your electronic medical record. You may view this report before your referring provider. If you have questions, please contact your health care provider. Indication: SINUSITIS. FRONTAL PAIN AND PRESSURE Technique: Performed without IV contrast Comparison: 06/28/2021 Findings: Frontal sinuses: Clear. Ethmoid sinuses: Clear. Maxillary sinuses: Minimal mucosal thickening within the inferior maxillary sinuses. The maxillary sinus drainage pathways are patent on both sides. Sphenoid sinuses: Clear, including both sphenoethmoidal recesses. Nasal Cavity: Nasal septum is midline. Nodularity of the right inferior turbinate mucosa. No large monty bullosa. No polyp. Degenerative changes at the temporomandibular joints. Incidental hyperostosis frontalis internus. Impression: 1. Minimal bilateral maxillary sinus disease. 2. Midline nasal septum. Please note that all CT scans at this facility use dose modulation, iterative reconstruction, and/or weight-based dosing when appropriate to reduce radiation dose to as low as reasonably achievable. Dictated by Chilango Muñoz MD @ 03/24/2024 12:51:17 PM (Electronically Signed)
== END 2024-03-23 14:40 | disposition home or self-care (01) ==
LOC: CT 14:41
PROVIDERS: PCP Nurse Practitioner Family; Visit Provider Nurse Practitioner Family
DX: J32.9 Chronic sinusitis, unspecified (principal); J32.0 Chronic maxillary sinusitis; J34.2 Deviated nasal septum
CPT/HCPCS: 70486

== ENCOUNTER 2024-04-07 09:13 | Outpatient (CLI) | payer MEDICARE, BC, SELFPAY | END 2024-04-07 09:14 | disposition home or self-care (01) | PROVIDERS: PCP Nurse Practitioner Family; Visit Provider Nurse Practitioner Family | DX: R51.9 Headache, unspecified (principal); I10 Essential (primary) hypertension | CPT/HCPCS: 85025; 85651; 86140 ==

== ENCOUNTER 2025-03-02 13:12 | Outpatient (CLI) | payer MEDICARE, BC, SELFPAY | END 2025-03-02 13:13 | disposition home or self-care (01) | PROVIDERS: PCP Nurse Practitioner Family; Visit Provider Nurse Practitioner Family | DX: R10.30 Lower abdominal pain, unspecified (principal) | CPT/HCPCS: 85025; 85651; 86140; 87086 ==

== ENCOUNTER 2025-03-16 09:03 | Outpatient (CLI) | payer MEDICARE, BC, SELFPAY | END 2025-03-16 09:04 | disposition home or self-care (01) | PROVIDERS: PCP Nurse Practitioner Family; Visit Provider Nurse Practitioner Family | DX: R10.11 Right upper quadrant pain (principal); E78.00 Pure hypercholesterolemia, unspecified | CPT/HCPCS: 80053; 80061; 82150; 82784; 83690; 85025; 86231; 86258; 86364 ==

== ENCOUNTER 2025-03-25 07:10 | Outpatient (CLI) | payer MEDICARE, BC, SELFPAY | END 2025-03-25 07:11 | disposition home or self-care (01) | LOC: NFLDREF 03-30 17:58 | PROVIDERS: PCP Nurse Practitioner Family; Referring Provider Nurse Practitioner Family; Visit Provider Nurse Practitioner Family | DX: R10.11 Right upper quadrant pain (principal) | CPT/HCPCS: 87338 ==

== ENCOUNTER 2025-04-09 09:57 | Outpatient (CLI) | payer MEDICARE, BC, SELFPAY ==
--- NOTE | 2025-04-09 10:15 | CRLHL7_ITS ---
For Patients: As a result of the Century Cures Act, medical imaging exams and procedure reports are released immediately into your electronic medical record. You may view this report before your referring provider. If you have questions, please contact your health care provider. INDICATION: Right upper quadrant pain COMPARISON: none TECHNIQUE: Real time anderson scale imaging and color Doppler analysis was performed of the right upper quadrant. FINDINGS: The patient`s liver is of normal size and has heterogeneous echogenicity. There is a normal appearance of the hepatic IVC and proximal abdominal aorta. There is no evidence of ascites. The gallbladder is of normal size and there is no evidence of intraluminal stones or sludge. The gallbladder wall measures 3 mm in thickness. The common bile duct is of normal size and measures 5 mm in diameter at the level of the freddy hepatis. The pancreas appears normal. There is no evidence of a stone or hydronephrosis within the right kidney. The right kidney measures 9.3 cm in length. IMPRESSION: Mild hepatic steatosis. Remainder unremarkable. Dictated by Chilango Muñoz MD @ 04/11/2025 1:18:32 PM (Electronically Signed)
== END 2025-04-09 09:58 | disposition home or self-care (01) ==
LOC: US 09:58
PROVIDERS: PCP Nurse Practitioner Family; Visit Provider Nurse Practitioner Family
DX: R10.11 Right upper quadrant pain (principal); K76.0 Fatty (change of) liver, not elsewhere classified
CPT/HCPCS: 76705